=== PATIENT | female | born 1990 | race Two or more races ===

== ENCOUNTER → 2019-06-09 | Outpatient (CLI) | payer OTHER ==
[~2019-06-09] VITALS: Ht 157.5 cm; Wt 114.3 kg
[~2019-06-09] MED LIST: ACET325T9 PO; IBUP400T18 PO; birth control
[2019-06-09] MEDS: SINCALIDE IV ONE (12:28)
[2019-06-09] MEDS: NORMAL SALINE IV ONE (12:28)
--- NOTE | 2019-06-09 12:53 | RAD ---
HEPATOBILIARY SCAN WITH EJECTION FRACTION History: Right upper quadrant abdominal pain nausea x4 months. Comparison: Limited abdominal ultrasound 05/28/2019. Procedure: Serial static images are obtained of the liver and biliary system in the frontal projection following IV administration of 5.4 mCi of Technetium 99m Choletec. After filling of the gallbladder, mcg of sincalide were infused over 30 minutes and dynamic imaging continued over this period. The gallbladder ejection fraction was calculated. Findings: There is prompt hepatic clearance of tracer from the blood pool. There is homogeneous distribution throughout the liver. There is normal filling of the gallbladder and normal emptying into the biliary system and small bowel. The gallbladder ejection fraction measures 42% (normal gallbladder EF is 35% or greater). Per technologist, patient felt pressure and burning in abdomen during sincalide infusion. IMPRESSION: 1. The cystic duct and common bile duct are patent. Negative for acute cholecystitis. 2. The gallbladder ejection fraction is normal. Electronically signed by: Torres Guzman MD (06/09/2019 12:50 PM) [id number]
== END | disposition home or self-care (01) ==
LOC: NM 10:14
PROVIDERS: ATTEND Surgery
DX: R10.11 Right upper quadrant pain (principal)
CPT/HCPCS: 78227; A9537; J2805